=== PATIENT | female | born 2005 ===

== ENCOUNTER 2023-03-17 01:41 | Emergency (ER) | payer SELFPAY ==
[2023-03-17] MEDS ORDERED: Ondansetron PF 4 MG/2 ML Vial ONE (01:50)
== END 2023-03-17 03:20 | disposition home or self-care (01) ==
LOC: ERS 01:41
DX: F10.129 Alcohol abuse with intoxication, unspecified (principal)
CPT/HCPCS: 96361; 96374; J2405